=== PATIENT | female | born 1975 | race Caucasian/White ===

== ENCOUNTER 2025-03-06 11:08 | Outpatient (CLI) | payer MEDICAID, SELFPAY ==
[2025-03-06 11:56] LABS: Lactate Dehydrogenase 171 U/L (135-214)
== END 2025-03-06 11:09 | disposition home or self-care (01) ==
PROVIDERS: PCP Family Medicine; Visit Provider Nurse Practitioner Family
DX: Z85.820 Personal history of malignant melanoma of skin (principal)
CPT/HCPCS: 36415; 83615

== ENCOUNTER 2025-05-26 08:24 | Outpatient (CLI) | payer MEDICAID, SELFPAY ==
--- NOTE | 2025-05-26 08:31 | US_ITS ---
WS: [id number] ULTRASOUND SOFT TISSUES RIGHT forearm HISTORY: LUMP TO R FOREARM COMPARISON: None available. TECHNIQUE: 2-D and color Doppler imaging is submitted. There is a palpable area in the superficial soft tissue of the RIGHT forearm as directed by the patient. Decreased echogenicity with a few low-level echoes. No increased vascularity. There is no tract extending superficial. There is very some mild wall thickening. US/US soft tissue/extremity [id number] IMPRESSION: 1. Palpable area corresponds to either a small epidermoid cyst or an area of f at necrosis. Favor this is probably an area of fat necrosis as there is a histo ry of a recent injection at this site. 2. No increased vascularity.
== END 2025-05-26 08:25 | disposition home or self-care (01) ==
LOC: RAD 08:26
PROVIDERS: PCP Family Medicine; Visit Provider Nurse Practitioner Family
DX: R22.31 Localized swelling, mass and lump, right upper limb (principal)
CPT/HCPCS: 76882